=== PATIENT | male | born 1955 | race Caucasian/White ===

== ENCOUNTER 2020-01-05 06:51 | Emergency (ER) | payer BC, SELFPAY ==
[2020-01-05 06:52] VITALS: BP 190/82; PULSE 60; RESP 16; TEMP 36.8; O2SAT 99; BMI 23.0
--- NOTE | 2020-01-05 07:00 | ED.VIS.GEN ---
History of Present Illness Chief Complaint: Laceration Informant: Patient Onset: Today Context: Sudden Onset Timing: Continuous Current Severity: Mild Maximum Severity: Mild Narrative: Patient is a 64-year-old male who is right-hand dominant with up-to-date tetanus that presents to the emergency department with left palmar laceration. Patient states that he was trying to break apart to frozen pieces of his ham with a butter knife. He states the knife slipped and punctured his hand. It happened just about an hour ago. He denies any numbness or tingling in the hand. He is not on anticoagulants. He denies other injury. He presented here immediately for care. Prior similar symptoms: No Recent Illness/Hospitalization: No Past Medical History - Allergies and Home Meds Allergies/Adverse Reactions: Allergies No Known Allergies Allergy (Verified 01/05/20 06:51) Primary Care Physician: Abhi Jha DO [STAFF PHYSICIAN] - 10 Day for suture removal Prior records reviewed: Yes Past Medical History: None Surgical History: no surgical history Smoking Status: Never smoker Review of Systems General: Denies: Chills, Fever, Sweats Eyes: Denies: Visual changes - bilaterally, Diplopia ENT: Denies: Rhinorrhea, Sore throat Cardiovascular: Denies: Chest pain, Palpitations Respiratory: Denies: Dyspnea, Cough, Dyspnea on exertion Gastrointestinal: Denies: Abdominal pain, Nausea, Vomiting, Diarrhea, Melena, Hematochezia Genitourinary: Denies: Dysuria, Hematuria, Frequency Musculoskeletal: Denies: Back pain, Extremity Pain Skin: Denies: Rash, Wounds Neurological: Denies: Headache, Weakness, Numbness Physical Exam Vital Signs/Narrative: Vital Signs Temp Pulse Resp BP Pulse Ox 01/05/20 06:52 98.2 F 60 16 190/82 H 99 Inital Vital Signs reviewed: Yes General: Well nourished, Well developed, No Acute Distress Head: Normocephalic, Atraumatic Eyes: Perrl, EOMI ENT: Moist mucous membranes, No rhinorrhea Neck: Supple, Nontender Cardiovascular: Regular rate, Regular rhythm, No murmurs Respiratory: No distress, CTA bilaterally, Chest nontender Abdomen: Soft, Nontender, Nondistended, Normal bowel sounds Back: Nontender, Normal Inspection Extremities: No edema, Tenderness - 2 cm laceration to mid palmar aspect of the left hand. Flexion of profundus and superficialis are intact through all digits. Two-point discrimination is preserved. Skin: Normal color, No rash Neurological: Alert, Oriented x3, Cranial nerves II-XII grossly intact, Normal Strength, Normal Sensation Psychological: Normal affect, Normal Mood Diagnostic/Tx/Re-eval The patient presents with 2 cm laceration to his left palm. There is no evidence of neurovascular injury. There is no evidence of tendinous injury. The wound was cleaned with chlorhexidine. It was irrigated with 250 cc of normal saline after anesthetized with 3 cc of 1% lidocaine without epinephrine. The wound was explored. There was no evidence of sheath or tendon injury. It was closed with 4 simple interrupted suture, 4-0. The patient tolerated this without issue. It is was a puncture wound to the palm, I am going to cover him with prophylactic Keflex. He will follow-up in 10 days for suture removal. I also counseled him that if there is any redness, drainage, increasing pain to return. He is comfortable with this plan of care. Impression 1. 2 cm left palmar laceration with repair ED Disposition - Plan for ED Patient: Instructions: ED Laceration Hand Prescriptions: Cephalexin [Keflex] 500 mg PO Q12 #14 cap Prescription Printed Referrals: Abhi Jha DO [STAFF PHYSICIAN] - 10 Day for suture removal
--- NOTE | 2020-01-06 16:08 | ED.DEP ---
ED Disposition - Plan for ED Patient: Disposition: Home or Assisted Living Instructions: ED Laceration Hand Prescriptions: Cephalexin [Keflex] 500 mg PO Q12 #14 cap Prescription Printed Referrals: Rhoda Pradhan MD [STAFF PHYSICIAN] -
== END 2020-01-05 07:42 | disposition home or self-care (01) ==
LOC: ED 07:21
PROVIDERS: Emergency Provider Emergency Medicine; PCP Family Medicine
DX: S61.412A Laceration without foreign body of left hand, initial encounter (principal); W26.0XXA Contact with knife, initial encounter; Y93.G1 Activity, food preparation and clean up; Y92.000 Kitchen of unspecified non-institutional (private) residence as the place of occurrence of the external cause; Y99.8 Other external cause status
CPT/HCPCS: 12001; 99283